=== PATIENT | female | born 1990 | race Two or more races ===

== ENCOUNTER 2024-04-02 01:56 | Emergency (ER) | payer MEDICAID ==
[~2024-04-02] VITALS: Ht 162.6 cm; Wt 59.6 kg
[2024-04-02 02:12] VITALS: BP 135/87; PULSE 93; RESP 16; TEMP 98.6; O2SAT 94
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
--- NOTE | 2024-04-02 03:31 | DVH ---
Examination: HWOCT CLINICAL INDICATION: headache COMPARISON: None. CONTRAST USED: None. TECHNIQUE: The examination was performed obtaining 5 mm slices without contrast. CT scan done accor ding to ALARA (As Low as Reasonably Achievable). Multiplanar reconstructions were obtained. FINDINGS: SUPRATENTORIAL BRAIN: Cerebral Hemispheres: There is no midline shift or mass effect, intra or extra-axial fluid collection s or hemorrhage. Periventricular White Matter/Basal Ganglia: No abnormal areas of altered attenuation within the nayana ventricular white matter or basal ganglia. POSTERIOR FOSSA: The brainstem is normal, and the visualized cerebellar hemispheres are unremarkable . VENTRICULAR SYSTEM: The ventricular system is normal in size. There is no evidence of hydrocephalus or transependymal flow of cerebrospinal fluid. SKULL BASE AND PARASELLAR REGION: The skull base is normal with no parasellar masses or abnormalitie s identified. CALVARIUM AND SCALP REGION: No abnormality is seen. PARANASAL SINUSES: Minimal S-shaped deviation of the nasal septum. No significant inflammatory jacob ges are identified in the paranasal sinuses. IMPRESSION: 1. No acute intracranial abnormality. No evidence of acute infarct or intracranial hemorrhage. 2. David-white matter differentiation is well maintained. 3. No evidence of mass lesion or hydrocephalus. 4. Minimal S-shaped deviation of the nasal septum. Paranasal sinuses are clear. Electronically Signed 04/02/2024 03:31 Vern Dockery
[2024-04-02] MEDS: ACETAMINOPHEN/CODEINE#3 (300/30mg) TAB PO ONE (03:37)
[2024-04-02] MEDS: ONDANSETRON ODT 4 MG TAB PO ONE (03:37)
[2024-04-02] MEDS ORDERED: ACE3T PO (03:40)
[2024-04-02] MEDS ORDERED: ZOFR4T PO (03:40)
== END 2024-04-02 03:50 | disposition home or self-care (01) ==
LOC: ER 01:56
DX: S09.90XA Unspecified injury of head, initial encounter (principal); G43.909 Migraine, unspecified, not intractable, without status migrainosus; J45.909 Unspecified asthma, uncomplicated; Z88.8 Allergy status to other drugs, medicaments and biological substances; V43.52XA Car driver injured in collision with other type car in traffic accident, initial encounter; Y93.89 Activity, other specified; Y92.410 Unspecified street and highway as the place of occurrence of the external cause; Y99.8 Other external cause status
CPT/HCPCS: 70450; 99284; Q0162